=== PATIENT | female | born 1970 | race Caucasian/White ===

== ENCOUNTER 2016-08-26 14:16 | Outpatient (CLI) | payer OTHER | END 2016-08-26 14:17 | disposition home or self-care (01) | DX: M25.522 Pain in left elbow (principal) ==

== ENCOUNTER 2016-11-21 10:55 | Outpatient (CLI) | payer OTHER | END 2016-11-21 10:56 | disposition home or self-care (01) | DX: M50.31 Other cervical disc degeneration, high cervical region (principal) ==

== ENCOUNTER 2017-06-01 09:41 | Outpatient (CLI) | payer OTHER ==
--- NOTE | 2017-06-03 17:03 | Mammography Report ---
DIGITAL SCREENING MAMMOGRAM: 06/01/2017 CLINICAL INDICATION: A 46-year-old, for screening. COMPARISON: 12/2015, 09/2013, 07/2012, 06/2011. TECHNIQUE: Routine CC and MLO projections were obtained of the breasts. FINDINGS: Parenchymal tissue within both breasts is heterogeneously dense, which may lower the sensi tivity of mammography; however, there are no dominant masses, suspicious microcalcifications, or seco ndary signs of malignancy. In comparison to the previous studies, there are no significant changes. ASSESSMENT: NO MAMMOGRAPHIC EVIDENCE OF MALIGNANCY. NO SIGNIFICANT INTERVAL CHANGES. RECOMMENDATION: Screening mammography is recommended annually. BIRADS category 1 - negative. STANDARD QUALIFYING STATEMENTS 1. This examination was reviewed with the aid of Computed-Aided Detection (CAD). 2. A negative or benign imaging report should not delay biopsy if clinically suspicious findings are present. Consider surgical consultation if warranted. More than 5% of cancers are not identified by i maging. 3. Dense breasts may obscure an underlying neoplasm. JOB #: [id number] EXT JOB #:[id number]
== END 2017-06-01 09:42 | disposition home or self-care (01) ==
LOC: DI.N 09:41
PROVIDERS: ATTEND Family Medicine
DX: Z12.31 Encounter for screening mammogram for malignant neoplasm of breast (principal)
CPT/HCPCS: 77067

== ENCOUNTER 2018-03-17 22:23 | Emergency (ER) | payer OTHER ==
--- NOTE | 2018-03-17 22:44 | ED Physician Documentation ---
PD HPI ABD PAIN - Stated complaint Stated Complaint: ABD PX - Chief complaint Chief Complaint: Abd Pain - History obtained from History obtained from: Patient - History of Present Illness Timing - onset: Enter time (15:00), Today Timing - duration: Hours Timing - details: Gradual onset Pain level now: 5 Quality: Pain Location: Periumbilical Radiation: Other (across mid abdomen (radiates laterally from periumbilicus)) Improved by: Laying still Associated symptoms: Nausea. No: Fever, Vomiting, Diarrhea, Constipation Similar symptoms before: Has not had sx before Recently seen: Not recently seen Review of Systems Constitutional: reports: Reviewed and negative Cardiac: reports: Reviewed and negative Respiratory: reports: Reviewed and negative GI: reports: Abdominal Pain, Nausea. denies: Vomiting, Constipation, Diarrhea : denies: Dysuria, Frequency Musculoskeletal: denies: Back pain PD PAST MEDICAL HISTORY - Past Medical History Past Medical History: No - Past Surgical History Past Surgical History: No - Present Medications Home Medications: Ambulatory Orders Medication Instructions Recorded Confirmed Sertraline HCl 150 mg PO DAILY 03/17/18 03/17/18 - Allergies Allergies/Adverse Reactions: Allergies Allergy/AdvReac Type Severity Reaction Status Date / Time No Known Drug Allergies Allergy Verified 03/17/18 22:34 - Living Situation Living Arrangement: reports: At home - Social History Does the pt smoke?: No PD ED PE NORMAL - Vitals Vital signs reviewed: Yes - General General: Alert and oriented X 3, No acute distress, Well developed/nourished - Cardiac Cardiac: RRR, No murmur - Respiratory Respiratory: No respiratory distress, Clear bilaterally - Abdomen Abdomen: Soft, Non distended - Back Back: No CVA TTP - Derm Derm: Normal color, Warm and dry PD ED PE EXPANDED - Abdomen Abdomen: Tender to palpation, Periumbilical, Other (there is an umbilical hernia that is soft but tender; reducible. reduction was associated with moderate discomfort. there is no other tenderness in the abdomen, and there is no guarding or rebound tenderness) Results - Vitals Vitals: Vital Signs - 24 hr 03/17/18 03/18/18 03/18/18 22:31 00:30 01:07 Temperature 36.8 C 36.7 C 36.6 C Heart Rate 68 57 L 51 L Respiratory 16 14 12 Rate Blood Pressure 128/75 117/80 110/70 O2 Saturation 98 93 96 Oxygen O2 Source Room air - Labs Labs: Laboratory Tests 03/17/18 03/17/18 03/17/18 23:06 23:25 23:25 WBC 6.8 RBC 4.67 Hgb 13.5 Hct 40.3 MCV 86.3 MCH 29.0 MCHC 33.6 RDW 14.1 Plt Count 211 MPV 9.4 Neut # (Auto) 3.9 Lymph # (Auto) 1.8 Ceiba # (Auto) 0.5 Eos # (Auto) 0.5 Baso # (Auto) 0.1 Absolute Nucleated RBC 0.00 Nucleated RBC % 0.0 Sodium 138 Potassium 3.6 Chloride 106 Carbon Dioxide 26 Anion Gap 6.0 BUN 23 H Creatinine 0.7 Estimated GFR (MDRD) 90 Glucose 116 H Calcium 8.7 Total Bilirubin 0.2 AST 18 ALT 18 Alkaline Phosphatase 50 Total Protein 6.8 Albumin 3.9 Globulin 2.9 Albumin/Globulin Ratio 1.3 Lipase 42 Urine Color YELLOW Urine Clarity CLEAR Urine pH 6.0 Ur Specific Randolph 1.020 Urine Protein NEGATIVE Urine Glucose (UA) NEGATIVE Urine Ketones NEGATIVE Urine Occult Blood NEGATIVE Urine Nitrite NEGATIVE Urine Bilirubin NEGATIVE Urine Urobilinogen 0.2 (NORMAL) Ur Leukocyte Esterase NEGATIVE Ur Microscopic Review NOT INDICATED Urine Culture Comments NOT INDICATED PD MEDICAL DECISION MAKING - ED course Complexity details: reviewed results, re-evaluated patient, considered differential, d/w patient ED course: On reevaluation, patient says she feels about the same as on initial evaluation. Reexamination of abdomen reveals the hernia remains reduced and there is no significant tenderness to palpation (periumbilical and all four quadrants). She declines analgesics, both initially and on reexamination. She says she first noticed a small protrusion at umbilicus a few months ago, but it seemed to go away on its own until today. I suspect the hernia is causing her symptoms, although I explained to her that this could be a coincidental finding and that her symptoms are due to another cause. However, her exam and test results do not suggest an emergent process that would indicate further testing or specific treatment at this time. - Sepsis Event Vital Signs: Vital Signs - 24 hr 03/17/18 03/18/18 03/18/18 22:31 00:30 01:07 Temperature 36.8 C 36.7 C 36.6 C Heart Rate 68 57 L 51 L Respiratory 16 14 12 Rate Blood Pressure 128/75 117/80 110/70 O2 Saturation 98 93 96 Oxygen O2 Source Room air Departure - Departure Disposition: 01 Home, Self Care Clinical Impression: Abdominal hernia Condition: Good Instructions: ED Hernia Inguinal Follow-Up: Marisela Collins MD [Primary Care Provider] - Comments: Your BUN was high today (blood urea nitrogen; this is a blood test that often reflects kidney function, but often is elevated for other reasons such as dehydration). Mention this to your doctor, as they might recommend repeating it. Discharge Date/Time: 03/18/18 01:12
[2018-03-17 23:09] LABS: BILIRUBIN,URINE NEGATIVE (NEGATIVE); GLUCOSE, URINE (UA) NEGATIVE (NEGATIVE); KETONES,URINE (UA) NEGATIVE (NEGATIVE); LEUKOCYTE ESTERASE, URINE NEGATIVE (NEGATIVE); NITRITE,URINE NEGATIVE (NEGATIVE); OCCULT BLOOD,URINE NEGATIVE (NEGATIVE); PROTEIN,URINE NEGATIVE (NEGATIVE); UROBILINOGEN,URINE 0.2 (NORMAL) E.U./dL (NORMAL)
[2018-03-17 23:11] LABS: CLARITY,URINE CLEAR (CLEAR)
[2018-03-17 23:34] LABS: BASOPHILS # (AUTO) 0.1 10^3/uL (0.0-0.1); BASOPHILS % (AUTO) 1.2 %; EOSINOPHILS # (AUTO) 0.5 10^3/uL (0.0-0.7); EOSINOPHILS % (AUTO) 7.3 %; HGB - HEMOGLOBIN 13.5 g/dL (12.0-16.0); LYMPHOCYTES # (AUTO) 1.8 10^3/uL (1.5-3.5); LYMPHOCYTES % (AUTO) 25.8 %; MEAN CORPUSCULAR HGB CONC 33.6 g/dL (32.0-36.0); MEAN CORPUSCULAR VOLUME 86.3 fL (81.0-99.0); MEAN PLATELET VOLUME 9.4 fL (7.9-10.8); MONOCYTES # (AUTO) 0.5 10^3/uL (0.0-1.0); MONOCYTES % (AUTO) 7.6 %; NEUTROPHILS # (AUTO) 3.9 10^3/uL (1.5-6.6); NEUTROPHILS % (AUTO) 58.1 %; PLT - PLATELET COUNT 211 10^3/uL (130-450); RED BLOOD COUNT 4.67 10^6/uL (4.20-5.40); RED CELL DISTRIBUTION WIDTH 14.1 % (12.0-15.0); WHITE BLOOD COUNT 6.8 x10^3/uL (4.8-10.8)
[2018-03-17 23:46] LABS: ALBUMIN 3.9 g/dL (3.2-5.5); ALBUMIN/GLOBULIN RATIO 1.3 (1.0-2.2); BILIRUBIN,TOTAL 0.2 mg/dL (0.2-1.0); CALCIUM 8.7 mg/dL (8.5-10.3); CREATININE 0.7 mg/dL (0.4-1.0); TOTAL PROTEIN 6.8 g/dL (6.7-8.2)
[2018-03-18 01:08] VITALS: BP 110/70
== END 2018-03-18 01:12 | disposition home or self-care (01) ==
LOC: ED 22:23
DX: K46.9 Unspecified abdominal hernia without obstruction or gangrene (principal); R94.4 Abnormal results of kidney function studies
CPT/HCPCS: 36415; 80053; 81001; 81003; 83690; 85025; 87086; 99282; 99283

== ENCOUNTER 2018-04-26 08:02 | Day surgery (SDC) | payer OTHER ==
[~2018-04-26 08:02] MED LIST: ceFAZolin 2 GM/50 ML 2 GM/50 ML BAG IV ONE
--- NOTE | 2018-04-26 08:39 | ANESTHESIA ---
Pre-Anesthesia VS, & Labs - Diagnosis umbilical hernia - Procedure umbilical hernia repair with mesh Vital Signs: Temp Pulse Resp BP Pulse Ox 36.7 C 74 16 122/77 97 04/26/18 08:09 04/26/18 08:09 04/26/18 08:09 04/26/18 08:09 04/26/18 08:09 Height 5 ft 6 in Weight (kg) 76.8 kg Body Mass Index 27.7 - NPO >8 hours - Is Patient ?: No - Lab Results Lab results reviewed: Yes Home Medications and Allergies Home Medications: Ambulatory Orders Medication Instructions Recorded Confirmed Sertraline HCl 150 mg PO DAILY 03/17/18 04/23/18 Sertraline HCl 150 mg PO DAILY 03/17/18 Allergies/Adverse Reactions: Allergies Allergy/AdvReac Type Severity Reaction Status Date / Time No Known Drug Allergies Allergy Verified 04/23/18 11:42 Anes History & Medical History - Anesthetic History Anesthesia Complications: reports: No previous complications Family history of Anesthesia Complications: Denies Family history of Malignant Hyperthermia: Denies - Medical History Cardiovascular: reports: None Pulmonary: reports: None Gastrointestinal: reports: GERD, Ulcers, Chronic diarrhea, Chronic constipation Urinary: reports: None Neuro: reports: None Musculoskeletal: reports: None Endocrine/Autoimmune: reports: None Blood Disorders: reports: None Skin: reports: None Smoking Status: Never smoker Exam General: Alert, Oriented x3, Cooperative Dental: Other (cap) Mouth Openin Fingerbreadth Neck Mobility: Normal Mallampati classification: III Thyromental Distance: greater than 6 cm Cardiovascular: Regular rate, Normal S1, Normal S2, No murmurs Mental/Cognitive Status: Alert/Oriented X3, Normal for patient Cognitive Status: Within normal limits Plan Anesthesia Type: MAC Consent for Procedure(s) Verified and Reviewed: Yes Code Status: Attempt Resuscitation ASA classification: 2-Mild systemic disease Is this case an emergency?: No
[2018-04-26 08:49] LABS: HCG UR QUAL NEGATIVE
[2018-04-26] MEDS ORDERED: LIDOCAINE 1%-EPI 1:100000 30 ML MDV ONE (08:59)
[2018-04-26] MEDS ORDERED: BUPIVACAINE 0.5% PF 30 ML VIAL ONE (09:00)
[2018-04-26] MEDS ORDERED: ceFAZolin 1 GM VIAL IR ONE (09:38)
[2018-04-26] MEDS ORDERED: LIDOCAINE 1%-EPI 1:100000 30 ML MDV SUBQ ONE ×2 (09:39)
[2018-04-26] MEDS ORDERED: LACTATED RINGERS 1,000 ML IV ONE (09:39)
[2018-04-26] MEDS ORDERED: BUPIVACAINE 0.5% PF 30 ML VIAL INFIL ONE ×2 (09:39)
[2018-04-26] MEDS ORDERED: KETOROLAC 30 MG/ML VIAL IVP ONE (10:20)
[2018-04-26] MEDS ORDERED: ONDANSETRON 4 MG/2 ML VIAL IVP ONE (10:20)
[2018-04-26] MEDS ORDERED: MIDAZOLAM 2 MG/2 ML VIAL IVP ONE (10:20)
[2018-04-26] MEDS ORDERED: PROPOFOL 200 MG/20 ML VIAL IVP ONE (10:20)
[2018-04-26] MEDS ORDERED: fentaNYL 100 MCG/2 ML VIAL IVP ONE (10:20)
[2018-04-26] MEDS ORDERED: ONDANSETRON 4 MG/2 ML VIAL IVP PRN (10:24)
[2018-04-26] MEDS ORDERED: IBUPROFEN 600 MG TABLET PO PRN (10:24)
[2018-04-26] MEDS ORDERED: ACETAMINOPHEN 325 MG TABLET PO PRN ×2 (10:24)
[2018-04-26] MEDS ORDERED: oxyCODONE 5 MG TABLET PO PRN (10:24)
--- NOTE | 2018-04-26 10:34 | OPERATIVE REPORT ---
Operative Report - General Procedure Date: 04/26/18 Planned Procedure: Open repair umbilical hernia Pre-Op Diagnosis: umbilical hernia Procedure Performed: Open repair of umbilical hernia with Ventralex ST soft tissue patch Post Op Diagnosis: Umbilical hernia - Procedure Note Primary Surgeon: Ivan Queen MD Secondary Surgeon: None Anesthesia Provider: Sophia Avila CRNA Anesthesia Technique: Local, MAC Pathology: None Estimated Blood Loss (mL): 5 Complications: None
[2018-04-26 11:25] VITALS: BP 115/65
--- NOTE | 2018-04-26 11:36 | OPERATIVE REPORT ---
DATE OF SERVICE: 04/26/2018 Physician: Ivan Queen MD PREOPERATIVE DIAGNOSIS: Symptomatic umbilical hernia. POSTOPERATIVE DIAGNOSIS: Symptomatic umbilical hernia. NAME OF PROCEDURE: Open repair of symptomatic umbilical hernia with Ventralex soft tissue patch. SURGEON: Ivan Queen MD. ANESTHESIA: Local plus monitored anesthesia care by Sophia Echeverria CRNA. ESTIMATED BLOOD LOSS: 5 mL. COMPLICATIONS: None. FINDINGS: A 4-cm Ventralex soft tissue patch was placed in a preperitoneal position. The fascial de fect was approximately 2 cm and consisted of preperitoneal fat that was viable. INDICATIONS: Melina Santos is a 47-year-old woman with recent onset of a painful umbilical bulge. E xamination revealed a reducible umbilical hernia. She was advised to undergo repair. TECHNIQUE: After informed consent, the patient was taken to the operating room, where she was sedate d and monitored. Preoperative preparation included application of sequential calf compression boots and administration of 2 grams of cefazolin intravenously within an hour of incision. Her periumbilic al region was prepared with Betadine solution, following which, a periumbilical block was instilled u sing a 50:50 combination of 1% lidocaine plain and 0.5% Marcaine with epinephrine; a total of 40 mL o f the mixture was used. The patient's abdomen was re-prepared with ChloraPrep solution and draped in the usual sterile fashion. Transverse incision was made along the inferior edge of the umbilicus an d carried down through the subcutaneous tissues. Hemostasis was achieved with electrocautery. The u mbilical dermis was dissected off of the hernia sac, which was mobilized circumferentially. The ante rior fascia was exposed circumferentially around the neck of the hernia sac for a distance of 1-2 cm. The hernia sac was entered and seen to contain preperitoneal fat, which was reduced into the preper itoneal space. The fascial edges were mobilized circumferentially for a distance of approximately 2 cm. The preperitoneal space was enlarged to a sufficient size to allow placement of the 4-cm Ventral ex soft tissue patch, which had been soaked in antibiotic solution, containing 1 gram of cefazolin pe r liter. The patch was placed in a preperitoneal position and held in place with the straps, while t he fascial edge was reapproximated vertically, using interrupted 0 Ethibond sutures, incorporating th e straps of the patch into the suture line. Excess strap was excised and discarded. Approximately 4 -0 Ethibond sutures were used to close the fascia over the patch. After hemostasis was assured, the wound was irrigated with antibiotic solution, following which, woun d closure was accomplished in layers, using 2-0 Vicryl to reapproximate the umbilical dermis to the a nterior fascia and to reapproximate the deep subcutaneous fat, followed by 3-0 Vicryl reapproximated superficial subcutaneous tissues, followed by 4-0 Monocryl for subcuticular skin closure, followed by Dermabond. The procedure was terminated. The patient was transferred out of the operating room in satisfactory condition. Sponge and needle counts were correct x2, and no drains were used. TD: 04/26/2018 10:49
== END 2018-04-26 08:03 | disposition home or self-care (01) ==
LOC: SDS 08:02
PROVIDERS: ATTEND Internal Medicine Gastroenterology
PROC: 0WUF0JZ Supplement Abdominal Wall with Synthetic Substitute, Open Approach (ICD-10-PCS; principal; 2018-04-26 09:00)
DX: K42.9 Umbilical hernia without obstruction or gangrene (principal); K21.9 Gastro-esophageal reflux disease without esophagitis
CPT/HCPCS: 49585; 81025; C1781; J0690; J7120

== ENCOUNTER 2018-10-20 09:13 | Outpatient (CLI) | payer OTHER ==
--- NOTE | 2018-10-21 08:32 | Mammography Report ---
Reason: SCREENING MAMMO Procedure Date: 10/20/2018 Accession Number: [id number] / [id number] Procedure: MGN - Screening Mammo Dig Bilat CPT Code: FULL RESULT: EXAM: Screening Mammo Dig Bilat DATE: 10/20/2018 9:41 AM CLINICAL HISTORY: Routine screening. No reported personal or family history of breast cancer. TECHNIQUE: Bilateral CC and MLO views were obtained. COMPARISON: 06/01/2017 through 07/21/2012 FINDINGS: The breasts demonstrate heterogeneously dense fibroglandular parenchyma bilaterally. Bilateral breasts: There are no suspicious masses, calcifications or areas of distortion. IMPRESSION: Negative examination RECOMMENDATION: Routine annual screening unless otherwise clinically indicated. BI-RADS CATEGORY 1: Negative STANDARD QUALIFYING STATEMENTS: 1. This examination was reviewed with the aid of Computer-Aided Detection (CAD). 2. A negative or benign imaging report should not preclude biopsy if clinically suspicious findings are present. 3. Dense breasts may obscure an underlying neoplasm. 4. This examination was reviewed without the aid of 3D breast imaging (tomosynthesis).
== END 2018-10-20 09:14 | disposition home or self-care (01) ==
LOC: DI.N 09:13
DX: Z12.31 Encounter for screening mammogram for malignant neoplasm of breast (principal)
CPT/HCPCS: 77067

== ENCOUNTER 2019-10-10 11:50 | Outpatient (CLI) | payer OTHER ==
[2019-10-10 18:54] LABS: H. PYLORIS ANTIGEN STL NEGATIVE (Negative)
== END 2019-10-10 23:59 | disposition home or self-care (01) ==
LOC: LAB.WCP 11:50
PROVIDERS: ATTEND Physician Assistant Medical
DX: K21.9 Gastro-esophageal reflux disease without esophagitis (principal)
CPT/HCPCS: 87338

== ENCOUNTER 2019-11-17 08:00 | Outpatient (CLI) | payer OTHER | END 2019-11-17 23:59 | disposition home or self-care (01) | LOC: LAB.R 08:00 | PROVIDERS: ATTEND Physician Assistant Medical | DX: R30.0 Dysuria (principal) | CPT/HCPCS: 87086 ==

== ENCOUNTER 2020-01-25 10:11 | Outpatient (CLI) | payer OTHER ==
--- NOTE | 2020-01-25 11:23 | SLEEP CARE CONSULTATION ---
Information from patient questionnaire entered by Janet Palm. I have reviewed and concur with the information entered by Janet Palm. This document represents the service I personally performed and the decisions made by me, Carola Marcial RN, MSN, [employer]. History of Present Illness Service Date and Time: 01/25/2020 1011 Reason for Visit: New patient Chief Complaint: reports: Unrefreshed sleep, Snoring, Excessive daytime sleepiness, Fatigue Duration of Symptoms: 2 years Usual bedtime: 10-11 pm Time it takes to fall asleep: 10 minutes Snores at night: Yes Observed to quit breathing while asleep: No Sleeps alone due to snoring: No Number of times waking at night: 1 Reasons for waking at night: reports: Snoring (with naps), Bathroom Toss, Turn, or Twitch while sleeping: No Recalls having dreams: Yes Usually gets out of bed at: 7-8 am Feels refreshed in the morning: No Morning headache: Yes (sometimes- 1-2 times a week resolves in 30 minutes ) Sleepy or fatigued during the day: Yes Ever fallen asleep while driving: No (but have felt extremely groggy) Takes day naps: Yes (not very often / weekly for 20 minutes ) Dreams during day naps: No Prior sleep studies: No - Parasomnia Symptoms Ever been unable to move upon waking from sleep: No Walks in sleep: No Talks in sleep: No Ever acted out dreams in sleep: No Ever felt weak in the knees when startled or emotional: No Bothered by creepy, crawly, restless sensations in legs: Yes (has noted aching of legs prior to bedtime weekly /relieved with stretching ) Problems with memory or concentration: Yes (feels due to fatigue ) Subjective Initial Jenners Sleepiness Scale score: 5 (in 2020) Past Medical History Past Medical History: reports: Anemia, Anxiety, GERD Social History The patient's occupation is a not employed. Patient is and lives in [place]. Have you smoked in the past 12 months: No Alcohol use: No Caffeine use: Yes Caffeine amount and frequency: 1 in the morning Family History Family history of sleep disordered breathing: Yes Family Hx Sleep Apnea: Mother: Sleep apnea - Treated, Father: Sleep apnea - Treated Allergies and Home Medications Known drug allergies: No Home medication list reviewed: Yes Allergy and home medication list: sertraline 150mg daily for anxiety Review of Systems Weight gain over past 5 years: 30 Cardiovascular: denies: high blood pressure, palpitations, chest pain, irregular heart rate or pulse, leg or foot swelling, have to sleep sitting up, other Respiratory: denies: shortness of breath, wheeze, sputum production, chronic cough, other Gastrointestinal: reports: heartburn (mild seen by GI ). denies: difficulty swallowing, nausea, vomitting, diarrhea, abdominal pain Urinary: denies: incontinence, frequency, urgency Neurological: reports: headaches (intermittent for years ). denies: seizure, head trauma, disorientation, speech dysfunction, gait or balance problems, fainting or unconsciousness, other Psychiatric: reports: anxiety. denies: Attention Deficit Hyperactivity, depression, mood disorder, claustrophobia, other Ear/Nose/Throat: reports: wisdom teeth removed. denies: nasal congestion, sinus problems, nose bleeds, dry mouth/throat, hoarseness, injury to nose, tonsillectomy, other Endocrine: reports: sluggishness. denies: thyroid disease, history of goiter, too hot or cold, excessive thirst, increased appetite, increased urination, unexplained weakness, other Musculoskeletal: reports: joint pain (right hip - chronic ), neck pain (chronic ). denies: back pain, joint swelling, muscle pain or cramping, mobility problems Immunologic: reports: allergies to food or environment (seasonal). denies: sneezing, rash, itching, other Physical Exam Blood Pressure: 120/76 Cuff size: long Heart Rate: 62 O2 Saturation: 98 Height: 5 ft 6 in Weight: 179 lb Body Mass Index: 28.8 BMI Classification: Overweight Neck circumference: 14.5 HEENT: No craniofacial malformation Nostrils: partially obstructed Turbinates: boggy Septum: deviated left Mouth and throat: narrow oropharynx Soft palate: long Hard palate: normal Uvula: normal Uvula visualization: 25% Mallampati Class III Tongue: enlarged in size with teeth valladares on lateral edges Tonsils: small Chin and jaw: normal size and position Neck: normal w/o lymphadenopathy or thyromegaly Heart: regular rate and rhythm Lungs: clear bilaterally Abdomen: soft Extremities: no edema or clubbing Impression and Plan 1. Suspected Obstructive Sleep Apnea-Hypopnea Syndrome, as suggested by a history of loud and irregular snoring, unrefreshed sleep, cognitive impairment, and excessive daytime sleepiness. Narrow oropharynx and obesity are common predisposing factors for obstructive sleep apnea-hypopnea syndrome. Anxiety is generally less when efficient sleep and no daytime sleepiness. I recommend proceeding to polysomnography to confirm the diagnosis and to assess severity. If the patient has significant sleep disordered breathing, a manual CPAP titration study will also be performed to find the optimal treatment pressure. I informed the patient of what the sleep studies involve and after some discussion, obtained agreement to proceed. The pathophysiology of obstructive sleep apnea-hypopnea syndrome was discussed with the patient and health risks of cardiovascular and cerebrovascular disease if not treated. AAS brochure for obstructive sleep apnea-hypopnea syndrome given and reviewed.Risks of drowsy driving discussed in detail and patient advised to avoid long distance driving and to lathe puller at the first sign of drowsiness. Patient agreed to plan. 2. Restless Leg Syndrome (RLS): as exhibited by an urge to move the legs and generally involves symptoms of uncomfortable and unpleasant sensations. Symptoms usually begin or worsen with inactivity or periods of rest such as sitting or lying down. These symptoms can be partially or completely relieved with movement such as stretching, walking or other movement. Generally they occur late in the evening or at bedtime. Sometimes the urge to move legs can be without discomfort or involve the arms and other parts of the body. Symptoms can cause patient concern and difficulty initiating sleep affecting daytime functioning. RLS is a sensorimotor disorder that can be hereditary and is often associated with PLMS periodic limb movement of sleep. It can also be secondary to mild iron deficiency (serum ferritin less than 50mcg - 75mcg/L) and magnesium deficiencies. Other medical conditions associated with RLS are narcolepsy, migraine headaches, chronic obstructive pulmonary disease, Parkinson disease, multiple sclerosis, peripheral neuropathy, obstructive sleep apnea, diabetes mellitus, fibromyalgia, rheumatoid arthritis, nocturnal eating, obesity, thyroid disease and heart disease and renal failure as well as mood disorders and ADHD. Also, medications such as most antidepressants with exception of bupropion, some centrally active dopamine receptor antagonists, sedating antihistamines such as Benadryl can precipitate or aggravate this disorder. Other factors that can increase symptoms are sleep deprivation, caffeine, nicotine and alcohol use. Patient currently has symptoms of difficulty to fall asleep at least weekly due to aching and funny feeling of legs that resolves with stretching or movement. She has a history of anemia that could be contributing to these symptoms as well as use of her sertraline. I recommend ruling out these conditions if not already done. AASM Restless Leg syndrome pamphlet given and reviewed. * Schedule polysomnography * Avoid long distance driving or driving when feeling sleepy. * Avoid alcohol, sedative and muscle relaxant around bedtime. * Attempt to lose weight. * Follow up with PCP to check iron deficiency * Review instructions provided by trained office staff on how to prepare for the sleep study. * Return for follow-up after sleep study completed. Visit Type: In Office Time Spent with Patient (minutes): 40 Provider Statement: I spent 100% of the Face to Face Visit with the patient with greater than 50% spent counseling the patient and coordination of care.
[2020-01-25 11:24] VITALS: BP 120/76
== END 2020-01-25 10:12 | disposition home or self-care (01) ==
LOC: SC 10:11
PROVIDERS: ATTEND Nurse Practitioner Family
DX: R06.83 Snoring (principal); G47.10 Hypersomnia, unspecified; G47.8 Other sleep disorders; R41.89 Other symptoms and signs involving cognitive functions and awareness; G25.81 Restless legs syndrome; E66.3 Overweight; Z68.28 Body mass index [BMI] 28.0-28.9, adult
CPT/HCPCS: 99204; 99212

== ENCOUNTER 2020-03-14 20:35 | Outpatient (CLI) | payer OTHER | END 2020-03-14 20:36 | disposition home or self-care (01) | LOC: SC 20:35 | PROVIDERS: ATTEND Internal Medicine Pulmonary Disease | DX: G47.61 Periodic limb movement disorder (principal); G47.10 Hypersomnia, unspecified; R53.83 Other fatigue; R51 Headache; R41.89 Other symptoms and signs involving cognitive functions and awareness; E66.3 Overweight; Z68.28 Body mass index [BMI] 28.0-28.9, adult | CPT/HCPCS: 95810 ==

== ENCOUNTER 2020-03-16 10:36 | Outpatient (CLI) | payer OTHER ==
[2020-03-16 18:12] LABS: BASOPHILS # (AUTO) 0.1 10^3/uL (0.0-0.1); BASOPHILS % (AUTO) 1.2 %; EOSINOPHILS # (AUTO) 0.3 10^3/uL (0.0-0.7); EOSINOPHILS % (AUTO) 4.1 %; HGB - HEMOGLOBIN 10.7 g/dL (12.0-16.0); LYMPHOCYTES # (AUTO) 1.2 10^3/uL (1.5-3.5); LYMPHOCYTES % (AUTO) 17.1 %; MEAN CORPUSCULAR HEMOGLOBIN 20.7 pg (27.0-31.0); MEAN CORPUSCULAR HGB CONC 28.6 g/dL (32.0-36.0); MEAN CORPUSCULAR VOLUME 72.2 fL (81.0-99.0); MEAN PLATELET VOLUME 10.6 fL (7.9-10.8); MONOCYTES # (AUTO) 0.5 10^3/uL (0.0-1.0); MONOCYTES % (AUTO) 6.9 %; NEUTROPHILS # (AUTO) 4.8 10^3/uL (1.5-6.6); NEUTROPHILS % (AUTO) 70.4 %; PLT - PLATELET COUNT 346 10^3/uL (130-450); RED BLOOD COUNT 5.18 10^6/uL (4.20-5.40); RED CELL DISTRIBUTION WIDTH 20.3 % (12.0-15.0); WHITE BLOOD COUNT 6.8 x10^3/uL (4.8-10.8)
[2020-03-16 18:28] LABS: RHEUMATOID FACTOR NEGATIVE (Negative)
[2020-03-16 18:32] LABS: ALBUMIN 4.3 g/dL (3.2-5.5); ALBUMIN/GLOBULIN RATIO 1.5 (1.0-2.2); ALKALINE PHOSPHATASE 69 IU/L (42-121); ALT ALANINE AMINOTRANSFERASE 18 IU/L (10-60); AST ASPARTATE AMINOTRANSFERASE 22 IU/L (10-42); BILIRUBIN,TOTAL 0.6 mg/dL (0.2-1.0); BUN - BLOOD UREA NITROGEN 14 mg/dL (6-20); CALCIUM 9.1 mg/dL (8.5-10.3); CARBON DIOXIDE - CO2 27 mmol/L (21-32); CHLORIDE 104 mmol/L (101-111); CHOL/HDL RATIO 3.1 (<4.4); CHOLESTEROL 179 mg/dL; CREATININE 0.7 mg/dL (0.4-1.0); GLUCOSE 80 mg/dL (70-100); HDL CHOLESTEROL 58 mg/dL; LDL CHOLESTEROL,CALCULATED 105 mg/dL; LDL/HDL RATIO 1.8 (<4.4); SODIUM 137 mmol/L (135-145); TOTAL PROTEIN 7.1 g/dL (6.7-8.2); URIC ACID 3.4 mg/dL (2.6-7.2); VLDL CHOLESTEROL 16 mg/dL
[2020-03-16 18:39] LABS: CRP - C-REACTIVE PROTEIN < 1.0 mg/dL (0-1.0)
[2020-03-16 19:31] LABS: PLATELET ESTIMATE, MANUAL NORMAL (130-450,000) (NORMAL); PLATELET MORPHOLOGY NORMAL APPEARANCE (NORMAL)
[2020-03-19 13:04] LABS: ANA SCREEN NEGATIVE (NEGATIVE)
[2020-03-20 17:04] LABS: DNA (DS) ANTIBODY <1 IU/mL
[2020-03-20 19:28] LABS: CYCLIC CITRULL PEPTIDE CCP IGG <16 UNITS
== END 2020-03-16 23:59 | disposition home or self-care (01) ==
LOC: LAB.WCP 10:36
PROVIDERS: ATTEND Family Medicine
DX: Z00.00 Encounter for general adult medical examination without abnormal findings (principal); M25.50 Pain in unspecified joint
CPT/HCPCS: 36415; 80053; 80061; 83721; 84443; 84550; 85025; 85651; 86038; 86140; 86200; 86225; 86430

== ENCOUNTER 2020-08-29 09:02 | Outpatient (CLI) | payer OTHER ==
--- NOTE | 2020-08-30 09:01 | Mammography Report ---
BILATERAL DIGITAL SCREENING MAMMOGRAM 3D/2D: 08/29/2020 CLINICAL: Routine screening. Comparison is made to exams dated: 10/20/2018 mammogram, 06/01/2017 mammogram, 12/06/2015 mammogram, mammogram, 07/21/2012 mammogram, and 06/16/2011 mammogram - [facility]. Th e tissue of both breasts is heterogeneously dense. This may lower the sensitivity of mammography. No significant masses, calcifications, or other findings are seen in either breast. There has been no significant interval change. IMPRESSION: NEGATIVE There is no mammographic evidence of malignancy. A 1 year screening mammogram is recommended. This exam was interpreted at Station ID: [id number]. NOTE: For mammograms, a report in lay terms will be sent to the patient. Approximately 15% of breast malignancies will not be visualized mammographically. In the management of a palpable breast mass, a negative mammogram must not discourage biopsy of a clinically suspicious lesion. Electronically Signed By: Zeke Juan M.D., jr/prema:08/29/2020 13:25:30 ACR BI-RADS Category 1: Negative [id number] PARENCHYMAL PATTERN: (D) - The breast(s) demonstrate(s) heterogeneously dense fibroglandular papo echols. BI-RADS CATEGORY: (1) - 1 RECOMMENDATION: (ANNUAL) - Recommend routine annual screening mammography. [id number] 1 year screening LATERALITY: (B)
== END 2020-08-29 09:03 | disposition home or self-care (01) ==
LOC: DI.N 09:02
DX: Z12.31 Encounter for screening mammogram for malignant neoplasm of breast (principal)

== ENCOUNTER → 2021-01-12 | Outpatient (CLI) | payer OTHER ==
[2021-01-12 13:48] LABS: BASOPHILS % (AUTO) 0.7 %; EOSINOPHILS # (AUTO) 0.4 10^3/uL (0.0-0.7); EOSINOPHILS % (AUTO) 6.3 %; HCT - HEMATOCRIT 41.3 % (37.0-47.0); HGB - HEMOGLOBIN 13.4 g/dL (12.0-16.0); LYMPHOCYTES # (AUTO) 1.1 10^3/uL (1.5-3.5); LYMPHOCYTES % (AUTO) 18.9 %; MEAN CORPUSCULAR HEMOGLOBIN 28.7 pg (27.0-31.0); MEAN CORPUSCULAR HGB CONC 32.4 g/dL (32.0-36.0); MEAN CORPUSCULAR VOLUME 88.4 fL (81.0-99.0); MEAN PLATELET VOLUME 10.9 fL (7.9-10.8); MONOCYTES # (AUTO) 0.4 10^3/uL (0.0-1.0); MONOCYTES % (AUTO) 6.8 %; NEUTROPHILS # (AUTO) 3.8 10^3/uL (1.5-6.6); NEUTROPHILS % (AUTO) 66.9 %; PLT - PLATELET COUNT 252 10^3/uL (130-450); RED BLOOD COUNT 4.67 10^6/uL (4.20-5.40); RED CELL DISTRIBUTION WIDTH 13.1 % (12.0-15.0); WHITE BLOOD COUNT 5.7 x10^3/uL (4.8-10.8)
[2021-01-12 14:03] LABS: ALBUMIN 4.1 g/dL (3.2-5.5); ALBUMIN/GLOBULIN RATIO 1.5 (1.0-2.2); BILIRUBIN,TOTAL 0.4 mg/dL (0.2-1.0); CALCIUM 8.9 mg/dL (8.5-10.3); CREATININE 0.7 mg/dL (0.4-1.0); POTASSIUM 4.2 mmol/L (3.5-5.0); TOTAL PROTEIN 6.9 g/dL (6.7-8.2)
[2021-01-12 14:08] LABS: BILIRUBIN,URINE NEGATIVE (NEGATIVE); GLUCOSE, URINE (UA) NEGATIVE (NEGATIVE); KETONES,URINE (UA) NEGATIVE (NEGATIVE); LEUKOCYTE ESTERASE, URINE NEGATIVE (NEGATIVE); NITRITE,URINE NEGATIVE (NEGATIVE); OCCULT BLOOD,URINE SMALL (NEGATIVE); PH,URINE 7.5 PH (5.0-7.5); PROTEIN,URINE NEGATIVE (NEGATIVE); UROBILINOGEN,URINE 0.2 (NORMAL) E.U./dL (NORMAL)
[2021-01-12 14:11] LABS: CLARITY,URINE CLEAR (CLEAR)
[2021-01-12 14:29] LABS: RBC,URINE 0-5 /HPF (0-5); SQUAMOUS EPITHELIAL CELL,UR NONE SEEN (<= Few); WBC,URINE 0-3 /HPF (0-5)
[2021-01-12 14:35] LABS: BACTERIA,URINE None Seen /HPF (None Seen)
== END ==
LOC: LAB.N 11:06
PROVIDERS: ATTEND Family Medicine
DX: R10.9 Unspecified abdominal pain (principal)
CPT/HCPCS: 36415; 80053; 81001; 82150; 83690; 85025; 87077; 87086

== ENCOUNTER 2021-01-17 09:22 | Outpatient (CLI) | payer OTHER ==
--- NOTE | 2021-01-17 09:51 | SLEEP CARE CONSULTATION ---
Information from patient questionnaire entered by Janet Palm. I have reviewed and concur with the information entered by Janet Palm. This document represents the service I personally performed and the decisions made by , Hailey Stewart ARNP. History of Present Illness Service Date and Time: 01/17/2021 09 Reason for follow up: other (10 month) Prior sleep studies: Yes Year and Where: 2019 - [facility] Type of Sleep Study: Polysomnography (negative - 1.3 AHI) HPI additional information: NATALIE LYONS was previously seen with an AHI 1.3 and RDI 3.4 on PSG and returns today for 10 month follow-up. She states during her last sleep study she did not sleep well that night. Patient states for years she has snored, had pauses in breathing, has not felt rested in the morning with some excessive daytime sleepiness. She does have a history of waking up with headaches. She states she is just fatigued all the time. Her uses a CPAP machine and has told her that she definitely has sleep apnea. Her last sleep study was done in lab and she states she did not sleep much of the night so does not feel it was a good measurement. She returns today to try and redo the sleep test to determine if she has sleep apnea. Subjective Initial [place] Sleepiness Scale score: 5 (in 2019) Current [place] Sleepiness Scale score: 5 Allergies and Home Medications Home medication list reviewed: Yes (no new meds) Review of Systems Review of systems same as previous: Yes (no changes) Physical Exam Heart Rate: 63 O2 Saturation: 97 Height: 5 ft 6 in Weight: 180 lb Body Mass Index: 29.0 BMI Classification: Overweight Impression and Plan 1. Suspected Obstructive Sleep Apnea-Hypopnea Syndrome, as suggested by a history of loud and irregular snoring, observed cessation of breath while asleep, morning headache, frequent awakening during the night, unrefreshed sleep, cognitive impairment, and excessive daytime sleepiness. Patient had a previous sleep study in March 2020. She states she did not feel she slept very much that night in the sleep lab. She only had a 70.4% sleep efficiency and did not sleep supine at night. Her AHI was 1.3 with an RDI of 3.4. It looks as if they were looking towards an HST at her last visit but this was never done. Because she did not feel she slept that night and may get a better measurement with an HST, I will order a sleep study for reevaluation. I discussed this with patient and obtained agreement to proceed. The pathophysiology of obstructive sleep apnea-hypopnea syndrome was discussed with the patient and health risks of cardiovascular and cerebrovascular disease if not treated. Risks of drowsy driving discussed in detail and patient advised to avoid long distance driving and to breast puller at the first sign of drowsiness. Patient agreed to plan. * Schedule polysomnography * Avoid long distance driving or driving when feeling sleepy. * Avoid alcohol, sedative and muscle relaxant around bedtime. * Attempt to lose weight. * Review instructions provided by trained office staff on how to prepare for the sleep study. * Return for follow-up after sleep study completed. Counseling Topics: Weight loss health impact Visit Type: In Office Time Spent with Patient (minutes): 20 Provider Statement: I spent 100% of the Face to Face Visit with the patient with greater than 50% spent counseling the patient and coordination of care.
== END 2021-01-17 09:23 | disposition home or self-care (01) ==
LOC: SC 09:22
PROVIDERS: ATTEND Nurse Practitioner Family
DX: G47.10 Hypersomnia, unspecified (principal); R06.83 Snoring; R51.9 Headache, unspecified; G47.8 Other sleep disorders; R41.89 Other symptoms and signs involving cognitive functions and awareness; E66.3 Overweight; Z68.29 Body mass index [BMI] 29.0-29.9, adult
CPT/HCPCS: 99212; 99213

== ENCOUNTER 2021-01-22 07:01 | Outpatient (CLI) | payer OTHER ==
--- NOTE | 2021-01-22 11:50 | Ultrasound Report ---
PROCEDURE: Abdomen Complete INDICATIONS: ABD PAIN TECHNIQUE: Real-time scanning was performed of the abdominal and retroperitoneal organs, with image documentatio n. COMPARISON: None. FINDINGS: Liver: Liver is normal in size and diffusely coarse in echotexture. There is a 1.5 x 1.2 x 1.4 cm r ight hepatic lobe cysts with single thin septation. Liver parenchyma is also diffusely echogenic. Gallbladder: No gallstones, gallbladder wall thickening, pericholecystic fluid, or abnormal sonograph ic Lorenzo's sign. Biliary ducts: Intrahepatic bile ducts are non-dilated. Extrahepatic bile duct caliber measures 5 m m. Normal is 6-7 mm or less in diameter, or 10 mm or less post-cholecystectomy. Pancreas: Visualized portions of the pancreas are sonographically normal. Spleen: Spleen is normal in size and homogeneous in echotexture. Kidneys: Kidneys are normal in size and echotexture. Right kidney measures 10.9 cm long; left kidne y measures 11.1 cm long. No hydronephrosis or nephrolithiasis. No solid masses. Aorta: Visualized aorta is normal in caliber at less than 3 cm. Iliacs: Proximal common iliac arteries are normal in caliber at less than 2.5 cm. IVC: Intrahepatic inferior vena cava is patent. Miscellaneous: No free abdominal fluid. IMPRESSION: Abdomen without acute sonographic abnormalities. Diffusely echogenic and coarsened liver parenchyma consistent with hepatic steatosis or chronic hepat ocellular disease. Consider correlation with liver function tests. Incidental note of a 1.5 cm right hepatic lobe cyst. Reviewed by: Derick Schuster MD on 01/22/2021 11:49 AM PDT Approved by: Derick Schuster MD on 01/22/2021 11:49 AM PDT Station ID: [id number]
== END 2021-01-22 07:02 | disposition home or self-care (01) ==
LOC: DI 07:01
PROVIDERS: ATTEND Family Medicine
DX: R10.9 Unspecified abdominal pain (principal); K76.89 Other specified diseases of liver

== ENCOUNTER 2021-01-29 10:00 | Outpatient (CLI) | payer OTHER | END 2021-01-29 10:01 | disposition home or self-care (01) | LOC: SC 10:00 | PROVIDERS: ATTEND Nurse Practitioner Family | DX: G47.33 Obstructive sleep apnea (adult) (pediatric) (principal); R09.02 Hypoxemia; E66.3 Overweight; Z68.28 Body mass index [BMI] 28.0-28.9, adult | CPT/HCPCS: 95806 ==

== ENCOUNTER 2021-02-12 13:58 | Outpatient (CLI) | payer OTHER ==
--- NOTE | 2021-02-12 14:24 | SLEEP CARE CONSULTATION ---
Information from patient questionnaire entered by Janet Palm. I have reviewed and concur with the information entered by Janet Palm. This document represents the service I personally performed and the decisions made by , Hailey Stewrat ARNP. History of Present Illness Service Date and Time: 02/12/2021 1358 Initial [place] Sleepiness Scale score: 5 (in 2020) Current [place] Sleepiness Scale score: 7 Additional HPI information: NATALIE LYONS returns for follow up and results of the recently performed home sleep study. Patient was found to have mild obstructive sleep AHI of 6.9 and kelly oxygen saturation of 89% I explained the pathophysiology behind obstructive sleep apnea. We then spent quite a bit of time discussing different treatment options. For mild obstructive sleep apnea, surgery and oral appliance are alternatives to nasal CPAP therapy but in moderate or severe cases, nasal CPAP is the most effective and reliable treatment. Because apnea is primarily in supine position, then positional management therapy could be effective. Methods discussed such as positioning with pillows, using a T-shirt with tennis balls in the back, and shown commercial products that have a pillow format on back to prevent supine sleep. I reviewed the impact of weight changes on sleep apnea and strongly recommended losing weight. After some discussion, the patient opted to go with the nasal CPAP therapy. Nasal au toCPAP set at 4-15 cmH20 will be ordered with rationale explained. A manual titration study will be ordered if unable to find optimal pressure with office adjustments. I explained how CPAP machine works with sample devices Respironics Dreamstation and ResMed [id number] and what to expect when using the machine. Using CPAP every night in order to get used to it was emphasized. Patient advised to put CPAP mask on before getting into bed so as not to fall asleep without CPAP. To assist acclimation to CPAP use, it could also be used for a short time during day while reading or watching TV. The patient was instructed to call the CPAP supplier to discuss any mechanical problem that may occur. If the mask given is uncomfortable or is difficult to keep on through the night even with adjustment, contact the CPAP supplier as many will replace with another mask style if notified before 30 days. If snoring or perceives is not getting enough air or too much air from the machine, notify this office. AAS patient education PAP tips reviewed and given to patient. Patient does not drink alcohol. Patient was cautioned about risks of drowsy driving until sleepiness symptoms resolve. Sleep Study - Results Type of Sleep Study: Home sleep study Prior sleep studies: Yes Year and Where: 2019([facility]) - [facility] Polysomnography/Home Sleep Study results: Physician Impression: The quality of the study is good. The length of the study is adequate (> 240 minutes). Please also see the tabulated and graphic data. 1. Obstructive Sleep Apnea-Hypopnea (ICD-10 G47.33), mild, with an AHI of 6.9/hr and kelly SaO2 of 89%. During the study, the patient had 25 apneas (25 obstructive, 0 central, 0 mixed) and 25 hypopneas. The longest episode lasted 54.0 seconds. The respiratory events occurred almost exclusively during supine sleep (supine AHI was 20.1 and non-supine, 1.00). 2. Hypoxemia (ICD-10 R09.02), minimal, with the lowest oxygen saturation of 89 % and 0.0 minutes with SaO2 under 90%. Baseline oxygen saturation was normal (Average oxygen saturation was 94%). Allergies and Home Medications Home medication list reviewed: Yes (no changes) Review of Systems Review of systems same as previous: Yes (no changes) Physical Exam Heart Rate: 70 O2 Saturation: 98 Height: 5 ft 6 in Weight: 181 lb Body Mass Index: 29.2 BMI Classification: Overweight Impression and Plan 1. Obstructive Sleep Apnea-Hypopnea Syndrome, mild, with lowest oxygen saturation of 89%. Obviously this is the cause of the patients symptoms of unrefreshed sleep, and excessive daytime sleepiness. Positive pressure therapy could benefit anxiety and gastric reflux. As mentioned above, the patient will be started on nasal autoCPAP therapy with pressure set at 4-15 cmH2O. A manual titration study will be completed if unable to find optimal treatment pressure with office adjustments. Compliance guidelines also reviewed. A copy of compliance guidelines will be given for reference at check out. Because the apnea is more severe supine, I instructed to avoid sleeping supine using pillow positioning until able to start CPAP use. * Nasal auto CPAP therapy, pressure at 4-15 cm H2O. * Attempt to lose weight. * Avoid alcohol consumption near bedtime. * Avoid supine sleep until using CPAP. * The patient is again cautioned about driving until sleepiness completely resolves. * Return one month after CPAP obtained. I will assess response to therapy and compliance at that time. Counseling Topics: Weight loss health impact Visit Type: In Office Time Spent with Patient (minutes): 14 Provider Statement: I spent 100% of the Face to Face Visit with the patient with greater than 50% spent counseling the patient and coordination of care.
== END 2021-02-12 13:59 | disposition home or self-care (01) ==
LOC: SC 13:58
PROVIDERS: ATTEND Nurse Practitioner Family
DX: G47.33 Obstructive sleep apnea (adult) (pediatric) (principal)
CPT/HCPCS: 99212

== ENCOUNTER 2021-06-12 08:38 | Outpatient (CLI) | payer OTHER ==
[2021-06-12 09:14] VITALS: BP 123/64
--- NOTE | 2021-06-12 09:15 | SLEEP CARE CONSULTATION ---
Information from patient questionnaire entered by Peg Carpenter MA. I have reviewed and concur with the information entered by Peg Carpenter MA. This document represents the service I personally performed and the decisions made by , Hailey Stewart ARNP. History of Present Illness Service Date and Time: 06/12/2021 0838 Previous diagnosis: Mild AHI: 6.9 Reason for follow up: first compliance (set up late ) Equipment type: CPAP Equipment obtained from: [facility] Mask style: Nasal (over the nose) Backup mask available: No (will keep old mask when replaced) Last cushion change: over 2 months Prior sleep studies: Yes Year and Where: 2019(poly) - [facility] Type of Sleep Study: Home sleep study HPI additional information: NATALIE LYONS was diagnosed to have mild, AHI 6.9, obstructive sleep apnea- hypopnea syndrome and returned today for CPAP therapy first compliance follow- up. Sleep Study - Results Type of Sleep Study: Home sleep study Prior sleep studies: Yes Year and Where: 2019(poly) - [facility] CPAP Compliance Data - Data Reviewed with Patient Average duration of nightly device use: 5 hours 33 minutes Compliance rate %: 87 Current pressure setting (cmH2O): 4-15 (median 4.9, avg 6.5, max 7.4) Average residual AHI: 0.3 Central apnea: .2 Obstructive apnea: .1 Subjective Missed days of use due to: reports: other (fall asleep without mask on) Patient concerns: denies: aerophagia, mask discomfort, air blowing in eyes, mask leak noise, condensation in mask/hose, nasal congestion, dry mouth, nose, throat, epistaxis, other Observed to snore while using device: No Current pressure setting perceived as: comfortable On therapy, patient: reports: sleeping better, awakening more refreshed, being more awake and alert during the day, more rested overall. denies: drowsiness while driving Initial [place] Sleepiness Scale score: 5 (in 2019) Current [place] Sleepiness Scale score: 6 (2020) Allergies and Home Medications Home medication list reviewed: Yes (no changes) Review of Systems Review of systems same as previous: Yes (no changes) Physical Exam Vital signs obtained and entered by: Pauline ANGELA Blood Pressure: 123/64 (left) Cuff size: wrist Heart Rate: 60 O2 Saturation: 98 (with mask) Height: 5 ft 6 in Weight: 178 lb (without boots) Weight change since last visit: 3 lb loss Body Mass Index: 28.7 BMI Classification: Overweight Impression and Plan 1. Obstructive Sleep Apnea-Hypopnea Syndrome, mild, with good treatment compliance and excellent apnea control. On CPAP therapy, the patient has better sleep quality and is more rested overall. Patient has not noted a big difference in better sleep and restfulness but has noted some improvement. She states she has no issues with using the mask or pressure. She states she was able to sleep well with the mask on from the first night. I advise her to try to sleep for longer periods since she is averaging under 6 hours of sleep nightly. Most pe ople require 7-9 hours of sleep for optimal mental and physical function. Thus patient is advised to strive for a minimum of 7 hours of sleep. She states sometimes she will fall asleep without the mask on. I advised her to try to set an alarm to tell her it is time to go to bed that will wake her up to put on mask. She voiced understanding. The patients pressure will be changed to autoCPAP 5-8 cmH20 to reflect pressure she is using. Patient advised to contact me if pressure change is uncomfortable so that it can be adjusted. Goals for apnea control discussed. Patient's apnea severity and rationale for treatment to reduce apnea, improve sleep quality and reduce cardiovascular and cerebrovascular events was reviewed. I also reviewed the benefit of consistent device use of CPAP for gastric reflux and anxiety. Patient has lost 3 pounds. Patient was encouraged to lose weight for their overall health and to reduce apneas. * Change auto CPAP pressure to 5-8 cmH2O * Notify me if snoring with mask or feeling that the pressure is too much or too little * Attempt to lose weight * Call this office if any problems using CPAP * Return for follow up in 1-2 months, or sooner if concerns arise Counseling Topics: Spare mask, Weight loss health impact Visit Type: In Office Time Spent with Patient (minutes): 18 Provider Statement: I spent 100% of the Face to Face Visit with the patient with greater than 50% spent counseling the patient and coordination of care.
== END 2021-06-12 08:39 | disposition home or self-care (01) ==
LOC: SC 08:38
PROVIDERS: ATTEND Nurse Practitioner Family
DX: G47.33 Obstructive sleep apnea (adult) (pediatric) (principal)
CPT/HCPCS: 99212

== ENCOUNTER 2021-07-19 09:09 | Outpatient (CLI) | payer OTHER ==
[2021-07-19 09:38] VITALS: BP 138/72
--- NOTE | 2021-07-19 09:38 | SLEEP CARE CONSULTATION ---
Information from patient questionnaire entered by Peg Carpenter MA. I have reviewed and concur with the information entered by Peg Carpenter MA. This document represents the service I personally performed and the decisions made by , Hailey Stewart ARNP. History of Present Illness Service Date and Time: 07/19/2021 0909 Previous diagnosis: Mild, Obstructive Sleep Apnea-Hypopnea Syndrome AHI: 6.9 Reason for follow up: one month Equipment type: CPAP Equipment obtained from: [employer] (getting supplies) Mask style: Nasal (over the nose) Backup mask available: No (will keep old mask when replaced) Last cushion change: 3.5 months Prior sleep studies: Yes Year and Where: 2019(poly) - [facility] Type of Sleep Study: Home sleep study HPI additional information: NATALIE LYONS was diagnosed to have mild, AHI 6.9, obstructive sleep apnea- hypopnea syndrome and returned today for CPAP therapy one month follow-up. Sleep Study - Results Type of Sleep Study: Home sleep study Prior sleep studies: Yes Year and Where: 2019(poly) - [facility] CPAP Compliance Data - Data Reviewed with Patient Average duration of nightly device use: 6 hOURS 56 MINUTES Compliance rate %: 93 Current pressure setting (cmH2O): 5-8 Average residual AHI: 0.3 Central apnea: .1 Obstructive apnea: .1 Subjective Patient concerns: reports: other (stuffy nose due to allergies, hard to wear mask). denies: aerophagia, mask discomfort, air blowing in eyes, mask leak noise, condensation in mask/hose, nasal congestion, dry mouth, nose, throat, epistaxis Observed to snore while using device: No Current pressure setting perceived as: comfortable On therapy, patient: reports: other (no noticing a lot of difference in rest). denies: drowsiness while driving Initial [place] Sleepiness Scale score: 5 (in 2020) Current [place] Sleepiness Scale score: 4 Allergies and Home Medications Home medication list reviewed: Yes (no changes) Review of Systems Review of systems same as previous: Yes (no changes) Physical Exam Vital signs obtained and entered by: Veronica CARPENTER CMA AAKENNY Blood Pressure: 138/72 (LEFT) Cuff size: wrist Heart Rate: 64 O2 Saturation: 97 (WITH MASK) Height: 5 ft 6 in Weight: 172 lb (WITH CLOTHES) Body Mass Index: 27.7 BMI Classification: Overweight Impression and Plan 1. Obstructive Sleep Apnea-Hypopnea Syndrome, mild, with good treatment compliance and excellent apnea control. On CPAP therapy, the patient has not noticed a change in her sleep quality or overall restfulness in the mornings at this time. Patient has had some stuffy nose due to her allergies which made it difficult for her to wear her mask all night. I advised her to try a nasal saline spray to rinse out allergens and help to reduce congestion in her nose. She can obtain a saline nasal spray at her local drugstore. Patient voiced understanding. Patient's apnea severity and rationale for treatment to reduce apnea, improve sleep quality and reduce cardiovascular and cerebrovascular events was reviewed. I also reviewed the benefit of consistent device use of CPAP for gastric reflux and anxiety. Patient was encouraged to lose weight for their overall health and to reduce apneas. * Continue auto CPAP pressure at 5-8 cmH2O * Notify me if snoring with mask or feeling that the pressure is too much or too little * Attempt to lose weight * Call this office if any problems using CPAP * Return for follow up in 3 months, or sooner if concerns arise Counseling Topics: Spare mask, Weight loss health impact Visit Type: In Office Time Spent with Patient (minutes): 20 Provider Statement: I spent 100% of the Face to Face Visit with the patient with greater than 50% spent counseling the patient and coordination of care.
== END 2021-07-19 09:10 | disposition home or self-care (01) ==
LOC: SC 09:09
PROVIDERS: ATTEND Nurse Practitioner Family
DX: G47.33 Obstructive sleep apnea (adult) (pediatric) (principal)
CPT/HCPCS: 99212; 99213

== ENCOUNTER 2021-10-17 09:07 | Outpatient (CLI) | payer OTHER ==
[2021-10-17 09:44] VITALS: BP 131/78
--- NOTE | 2021-10-17 09:44 | SLEEP CARE CONSULTATION ---
Information from patient questionnaire entered by Peg Carpenter MA. I have reviewed and concur with the information entered by Peg Carpenter MA. This document represents the service I personally performed and the decisions made by , Hailey Stewart ARNP. History of Present Illness Service Date and Time: 10/17/2021 0907 Previous diagnosis: Mild, Obstructive Sleep Apnea-Hypopnea Syndrome AHI: 6.9 Reason for follow up: three month Equipment type: CPAP Equipment obtained from: [employer] (haven't got last order, will touch base with them) Mask style: Nasal (over the nose) Backup mask available: No (will keep old mask when replaced) Last cushion change: over 3 months Prior sleep studies: Yes Year and Where: 2019(poly) - [facility] Type of Sleep Study: Home sleep study HPI additional information: NATALIE LYONS was diagnosed to have mild, AHI 6.9, obstructive sleep apnea- hypopnea syndrome and returned today for CPAP therapy three month follow-up. Sleep Study - Results Type of Sleep Study: Home sleep study Prior sleep studies: Yes Year and Where: 2019(poly) - [facility] CPAP Compliance Data - Data Reviewed with Patient Average duration of nightly device use: 6 HOURS AND 43 MINUTES Compliance rate %: 82 Current pressure setting (cmH2O): 5-8 Average residual AHI: 0.2 Central apnea: .1 Obstructive apnea: .1 Average large leak: 6.7 Subjective Missed days of use due to: reports: family emergency, other (FORGOT AND FELL ASLEEP) Patient concerns: reports: condensation in mask/hose (WATER COMES OUT TO FAST). denies: aerophagia, mask discomfort, air blowing in eyes, mask leak noise, nasal congestion, dry mouth, nose, throat, epistaxis Observed to snore while using device: No Current pressure setting perceived as: comfortable On therapy, patient: reports: sleeping better, more rested overall. denies: drowsiness while driving Initial [place] Sleepiness Scale score: 5 (in 2019) Current [place] Sleepiness Scale score: 3 (10/2021) Allergies and Home Medications Known drug allergies: No Drug allergies reviewed: Yes Home medication list reviewed: Yes (no changes) Allergy and home medication list: Allergies No Known Drug Allergies Allergy (Verified 04/23/18 11:42) Review of Systems Review of systems same as previous: Yes (no changes) Physical Exam Vital signs obtained and entered by: ABEBE BARRIOS Blood Pressure: 131/78 (RIGHT, PULSE 68, RESP 16) Heart Rate: 69 O2 Saturation: 98 (PAPER) Height: 5 ft 6 in Weight: 177 lb (WITH CLOTHES) Weight change since last visit: 5 lb gain Body Mass Index: 28.5 BMI Classification: Overweight Impression and Plan 1. Obstructive Sleep Apnea-Hypopnea Syndrome, mild, with good treatment compliance and excellent apnea control. On CPAP therapy, the patient has better sleep quality and is more rested overall. Patient condensation in the mask. I discussed with her going into the climate control on the ResMed device and adjusting the humidity and or heated hose settings to reduce this condensation. She was instructed to either the heated hose up or the humidity down but only one income at a time for either. She voiced understanding and agreement with this plan of care. Patient's apnea severity and rationale for treatment to reduce apnea, improve sleep quality and reduce cardiovascular and cerebrovascular events was reviewed. I also reviewed the benefit of consistent device use of CPAP for gastric reflux and anxiety. 2. Overweight, unspecified. Patient has gained weight. Currently patients BMI is 28.5. Obesity increases the risk of apnea, CPAP pressure requirements and overall health risks especially cardiovascular and diabetes. Thus patient is advised to lose weight. * Continue auto CPAP pressure at 5-8 cmH2O * Notify me if snoring with mask or feeling that the pressure is too much or too little * Attempt to lose weight * Call this office if any problems using CPAP * Return for follow up in 6 months, or sooner if concerns arise Counseling Topics: Spare mask, Weight loss health impact Visit Type: In Office Time Spent with Patient (minutes): 20 Provider Statement: I spent 100% of the Face to Face Visit with the patient with greater than 50% spent counseling the patient and coordination of care.
== END 2021-10-17 09:08 | disposition home or self-care (01) ==
LOC: SC 09:07
PROVIDERS: ATTEND Nurse Practitioner Family
DX: G47.33 Obstructive sleep apnea (adult) (pediatric) (principal); E66.3 Overweight; Z68.28 Body mass index [BMI] 28.0-28.9, adult
CPT/HCPCS: 99212; 99213

== ENCOUNTER 2021-12-24 14:06 | Outpatient (CLI) | payer OTHER ==
--- NOTE | 2021-12-24 16:57 | XRAY Report ---
PROCEDURE: Chest 2 View X-Ray INDICATIONS: PERSISTENT COUGH TECHNIQUE: 2 view(s) of the chest. COMPARISON: Chest x-ray 05/12/2016 FINDINGS: Surgical changes and devices: None. Lungs and pleura: No pleural effusions or pneumothorax. Lungs are clear. Mediastinum: Mediastinal contours are normal. Heart size is normal. Bones and chest wall: No suspicious bony abnormalities. Soft tissues appear unremarkable. IMPRESSION: No acute pulmonary process. Reviewed by: Lydia Regan MD on 12/24/2021 4:55 PM PDT Approved by: Lydia Regan MD on 12/24/2021 4:55 PM PDT Station ID: [id number]
== END 2021-12-24 23:59 | disposition home or self-care (01) ==
LOC: DI.N 14:06
PROVIDERS: ATTEND Family Medicine
DX: R05.3 Chronic cough (principal)

== ENCOUNTER 2023-04-15 09:33 | Outpatient (CLI) | payer OTHER ==
--- NOTE | 2023-04-16 11:22 | Mammography Report ---
BILATERAL DIGITAL SCREENING MAMMOGRAM 3D/2D: 04/15/2023 CLINICAL: Routine screening. Comparison is made to exams dated: 08/29/2020 mammogram, 10/20/2018 mammogram, 06/01/2017 mammogram, a nd 12/06/2015 mammogram - [facility]. Both breasts are heterogeneously dense, which may obscure small masses (category c / 51-75% glandular tissue). No significant masses, calcifications, or other findings are seen in either breast. There has been no significant interval change. IMPRESSION: NEGATIVE There is no mammographic evidence of malignancy. A 1 year screening mammogram is recommended. Based on the Tyrer Cuzick model (a risk assessment model) the patients lifetime risk is 13.5% and he r 10 year risk is 3.5%. According to the ACR, ACS, and NCCN guidelines, an annual breast MRI exam fatuma ng with mammogram is recommended if the patients lifetime risk is 20% or greater. This exam was interpreted at Station ID: [id number]. NOTE: For mammograms, a report in lay terms will be sent to the patient. Approximately 15% of breast malignancies will not be visualized mammographically. In the management of a palpable breast mass, a negative mammogram must not discourage biopsy of a clinically suspicious lesion. Electronically Signed By: Fransico miller/prema:04/15/2023 18:51:30 letter sent: No_Letter ACR BI-RADS Category 1: Negative 3341F PARENCHYMAL PATTERN: (D) - The breast(s) demonstrate(s) heterogeneously dense fibroglandular papo echols. BI-RADS CATEGORY: (1) - 1 Mammogram [id number] 1 year screening LATERALITY: (B)
== END 2023-04-15 09:34 | disposition home or self-care (01) ==
LOC: DI.N 09:33
DX: Z12.31 Encounter for screening mammogram for malignant neoplasm of breast (principal)

== ENCOUNTER 2023-10-09 08:32 | Outpatient (CLI) | payer OTHER ==
[2023-10-09 12:38] LABS: BASOPHILS # (AUTO) 0.1 10^3/uL (0.0-0.1); BASOPHILS % (AUTO) 1.2 %; EOSINOPHILS # (AUTO) 0.3 10^3/uL (0.0-0.7); EOSINOPHILS % (AUTO) 4.9 %; HCT - HEMATOCRIT 41.7 % (37.0-47.0); HGB - HEMOGLOBIN 13.2 g/dL (12.0-16.0); LYMPHOCYTES # (AUTO) 1.4 10^3/uL (1.5-3.5); LYMPHOCYTES % (AUTO) 20.8 %; MEAN CORPUSCULAR HGB CONC 31.7 g/dL (32.0-36.0); MEAN CORPUSCULAR VOLUME 88.3 fL (81.0-99.0); MEAN PLATELET VOLUME 11.5 fL (7.9-10.8); MONOCYTES # (AUTO) 0.5 10^3/uL (0.0-1.0); MONOCYTES % (AUTO) 7.1 %; NEUTROPHILS # (AUTO) 4.3 10^3/uL (1.5-6.6); NEUTROPHILS % (AUTO) 65.7 %; PLT - PLATELET COUNT 259 10^3/uL (130-450); RED BLOOD COUNT 4.72 10^6/uL (4.20-5.40); RED CELL DISTRIBUTION WIDTH 13.2 % (12.0-15.0); WHITE BLOOD COUNT 6.5 x10^3/uL (4.8-10.8)
[2023-10-09 12:57] LABS: THYROID STIMULATING HORMONE 2.74 uIU/mL (0.34-5.60)
[2023-10-09 12:58] LABS: ALBUMIN/GLOBULIN RATIO 1.4 (1.0-2.2); ALKALINE PHOSPHATASE 69 IU/L (42-121); ALT ALANINE AMINOTRANSFERASE 11 IU/L (10-60); AST ASPARTATE AMINOTRANSFERASE 14 IU/L (10-42); BILIRUBIN,TOTAL 0.4 mg/dL (0.2-1.0); BUN - BLOOD UREA NITROGEN 13 mg/dL (6-20); CALCIUM 9.2 mg/dL (8.5-10.3); CARBON DIOXIDE - CO2 29 mmol/L (21-32); CHLORIDE 106 mmol/L (101-111); CHOL/HDL RATIO 4.9 (<4.4); CHOLESTEROL 206 mg/dL; CREATININE 0.8 mg/dL (0.6-1.3); GFR - MDRD 75 (>89); GLUCOSE 93 mg/dL (74-104); HDL CHOLESTEROL 42 mg/dL; LDL CHOLESTEROL,CALCULATED 124 mg/dL; SODIUM 139 mmol/L (135-145); TOTAL PROTEIN 6.8 g/dL (6.4-8.9); TRIGLYCERIDES 201 mg/dL (48-352); VLDL CHOLESTEROL 40 mg/dL
== END 2023-10-09 08:33 | disposition home or self-care (01) ==
LOC: LAB.N 08:32
PROVIDERS: ATTEND Physician Assistant Medical
DX: Z00.00 Encounter for general adult medical examination without abnormal findings (principal); R53.83 Other fatigue
CPT/HCPCS: 36415; 80053; 80061; 83721; 84439; 84443; 84481; 85025

== ENCOUNTER 2023-10-09 09:05 | Outpatient (CLI) | payer OTHER ==
--- NOTE | 2023-10-09 09:30 | Sleep Patient Instructions ---
Sleep Center Visit Summary - Patient Visit Information Reason for Visit: Annual follow-up - Patient Instructions Additional Instructions: You will continue with CPAP therapy with pressure set at 5-8 cmH2O. A supply prescription will be updated with your DME. We encourage you to continue to try to lose weight. Please follow up with the sleep care office in 1 year. - Clinic Information Contact: [facility] [address] [place] [address] [email or web address] T: [phone]
--- NOTE | 2023-10-09 09:34 | SLEEP CARE CONSULTATION ---
Information from patient questionnaire entered by Georgina Oconnell. I have reviewed and concur with the information entered by Georgina Oconnell. This document represents the service I personally performed and the decisions made by , Hailey Stewart ARNP. History of Present Illness Service Date and Time: 10/09/2023 0905 Previous diagnosis: Mild, Obstructive Sleep Apnea-Hypopnea Syndrome AHI: 6.9 (in 2019) Reason for follow up: annual (LAST SEEN 10/2021) Equipment type: CPAP (ResMed 11; s/u 04/2021) Equipment obtained from: [facility] (needs updated prescription) Mask style: Nasal (over the nose) Backup mask available: No Last cushion change: 6 months Prior sleep studies: Yes Year and Where: 2019(poly) - [facility] Type of Sleep Study: Home sleep study HPI additional information: MELINA LYONS was diagnosed to have mild, AHI 6.9, obstructive sleep apnea- hypopnea syndrome and returned today for CPAP therapy annual follow-up. Sleep Study - Results Type of Sleep Study: Home sleep study Prior sleep studies: Yes Year and Where: 2019(poly) - [facility] CPAP Compliance Data - Data Reviewed with Patient Average duration of nightly device use: 7 hours 6 minutes Compliance rate %: 92 (350/365 days used) Current pressure setting (cmH2O): 5-8 Average residual AHI: 0.4 Central apnea: 0.1 Obstructive apnea: 0.2 Average large leak: 0.7 L/min Subjective Patient concerns: denies: aerophagia, mask discomfort, air blowing in eyes, mask leak noise, condensation in mask/hose, nasal congestion, dry mouth, nose, throat, epistaxis Observed to snore while using device: No Current pressure setting perceived as: comfortable On therapy, patient: reports: sleeping better, awakening more refreshed, being more awake and alert during the day, more rested overall. denies: drowsiness while driving Initial [place] Sleepiness Scale score: 5 (in 2019) Current [place] Sleepiness Scale score: 5 (10/09/23) Allergies and Home Medications Known drug allergies: No Drug allergies reviewed: Yes Home medication list reviewed: Yes (no changes) Allergy and home medication list: Allergies No Known Drug Allergies Allergy (Verified 10/07/23 09:52) Review of Systems Review of systems same as previous: Yes (NO CHANGE) Physical Exam Vital signs obtained and entered by: GEORGINA Cox MA Blood Pressure: 140/92 (RIGHT ) Cuff size: regular Heart Rate: 60 O2 Saturation: 98 Height: 5 ft 6 in Weight: 189 lb Body Mass Index: 30.4 BMI Classification: Obese Impression and Plan 1. Obstructive Sleep Apnea-Hypopnea Syndrome, mild, with good treatment compliance and good apnea control. On CPAP therapy, the patient has better sleep quality and is more rested overall. Melina has had a change in insurance and needs an updated supply prescription for her DME supplier. Patient has significant improvement of their sleep apnea and is satisfied with current CPAP therapy. Patient denies problems with oral dryness, nasal congestion, epistaxis, skin irritation or aerophagia. Patient's apnea severity and rationale for treatment to reduce apnea, improve sleep quality and reduce cardiovascular and cerebrovascular events was reviewed. I also reviewed the benefit of consistent device use of CPAP for gastric reflux and anxiety. 2. Obesity, unspecified. Currently patients BMI is 30.4. Obesity increases the risk of apnea, CPAP pressure requirements and overall health risks especially cardiovascular and diabetes. Thus patient is advised to lose weight. * Continue auto CPAP pressure at 5-8 cmH2O * Update supply prescription * Notify me if snoring with mask or feeling that the pressure is too much or too little * Attempt to lose weight * Call this office if any problems using CPAP * Return for follow up in 12 months, or sooner if concerns arise Counseling Topics: Spare mask, Weight loss health impact Prescriptions: Device supplies Follow up with Sleep Care in: 1 year Visit Type: In Office Time Spent with Patient (minutes): 13 Provider Statement: I spent 100% of the Face to Face Visit with the patient with greater than 50% spent counseling the patient and coordination of care.
[2023-10-09 09:42] VITALS: BP 140/92; O2SAT 98
== END 2023-10-09 09:06 | disposition home or self-care (01) ==
LOC: SC 09:05
PROVIDERS: ATTEND Nurse Practitioner Family
DX: G47.33 Obstructive sleep apnea (adult) (pediatric) (principal); E66.9 Obesity, unspecified; Z68.30 Body mass index [BMI] 30.0-30.9, adult; Z00.00 Encounter for general adult medical examination without abnormal findings; R53.83 Other fatigue
CPT/HCPCS: 36415; 80053; 80061; 83721; 84439; 84443; 84481; 85025; 99212

== ENCOUNTER 2024-01-04 10:00 | Outpatient (CLI) | payer OTHER ==
--- NOTE | 2024-01-04 13:42 | XRAY Report ---
PROCEDURE: Chest 2V INDICATIONS: COUGH TECHNIQUE: 2 views of the chest were acquired. COMPARISON: 12/24/2021. FINDINGS: Surgical changes and devices: None. Lungs and pleura: No pleural effusions or pneumothorax. Lungs are clear. Mediastinum: Mediastinal contours appear normal. Heart size is normal. Bones and chest wall: No suspicious bony lesions. Overlying soft tissues appear unremarkable. IMPRESSION: No acute cardiopulmonary process. Reviewed by: Dick Garza MD on 01/04/2024 1:41 PM PDT Approved by: Dick Garza MD on 01/04/2024 1:41 PM PDT Station ID: [id number]
== END 2024-01-04 10:15 | disposition home or self-care (01) ==
LOC: DI.N 10:00
PROVIDERS: ATTEND Physician Assistant Medical
DX: R05.9 Cough, unspecified (principal)